=== PATIENT | female | born 1940 | race Caucasian/White ===

== ENCOUNTER 2023-01-22 11:48 | Emergency (ER) | payer OTHER ==
[2023-01-22 11:58] VITALS: BP 167/99; PULSE 67; RESP 18; TEMP 98.4; BMI 20.7
== END 2023-01-22 15:04 | disposition home or self-care (01) ==
LOC: FER 11:48
DX: M25.572 Pain in left ankle and joints of left foot (principal); R22.42 Localized swelling, mass and lump, left lower limb; W01.0XXA Fall on same level from slipping, tripping and stumbling without subsequent striking against object, initial encounter; Y92.009 Unspecified place in unspecified non-institutional (private) residence as the place of occurrence of the external cause; Y93.01 Activity, walking, marching and hiking
CPT/HCPCS: 70450-TC; 71045-TC-FY; 72125-TC; 72170-TC-FY; 73610-TC-LT-FY; 73610-TC-RT-FY; 93005; 99285-25

== ENCOUNTER 2024-11-18 09:28 | Inpatient (IN) | payer OTHER ==
[2024-11-18 10:05] LABS: ABSOLUTE IMMATURE GRANULOCYTES 0.02 x10^3/uL (0.0-0.031); BASOPHILS # 0.04 x10^3/uL (0.01-0.08); EOSINOPHIL % 3.5 % (0.7-5.8); EOSINOPHILS # 0.19 x10^3/uL (0.04-0.36); MCHC 33.3 g/dl (32.2-35.5); MEAN CELL VOLUME 99.7 fl (79.4-94.8); MEAN PLT VOLUME 9.8 fl (9.4-12.3); MONOCYTE # 0.48 x10^3/uL (0.24-0.86); MONOCYTE % 8.9 % (4.7-12.5); RDW 12.6 % (12.5-17.0)
[2024-11-18 10:13] LABS: INR 3.31 (0.83-1.09); PROTHROMBIN TIME (PATIENT) 36.4 SEC (9.7-13.0)
[2024-11-18 10:16] LABS: ACTIVATED PTT 46.1 SECONDS (25.2-36.5)
[2024-11-18 10:21] LABS: GLUCOSE,RANDOM 97.0 mg/dL (74-106)
[2024-11-18 10:22] LABS: TOT PROT 6.4 g/dl (6.4-8.2)
[2024-11-18 10:23] LABS: CO2 25.0 mmol/L (21-32)
[2024-11-18 10:24] LABS: ALK PHOS 68.0 U/L (40-150)
[2024-11-18 10:27] LABS: CREATININE 0.8 mg/dL (0.55-1.3); SGOT/AST 35.0 U/L (5-34); SGPT/ALT 12.0 U/L (0-55)
[2024-11-18] MEDS ORDERED: ACETAMINOPHEN 325 MG TABLET (FP) ONE (11:28)
[2024-11-18] MEDS: ACETAMINOPHEN 325 MG TABLET (FP) PO ONE (12:02)
[2024-11-18] MEDS: LIDOCAINE 5% TOPICAL PATCH TP SCH (14:36)
[2024-11-18 14:54] VITALS: BMI 16.7
[2024-11-18] MEDS: LIDOCAINE PATCH REMOVAL MC SCH (22:17)
[2024-11-18] MEDS: FLECAINIDE ACETATE 50 MG TABLET PO SCH (22:48)
[2024-11-19 06:55] LABS: BASOPHILS # 0.03 x10^3/uL (0.01-0.08); EOSINOPHIL % 0.5 % (0.7-5.8); EOSINOPHILS # 0.04 x10^3/uL (0.04-0.36)
[2024-11-19 07:05] LABS: ABSOLUTE IMMATURE GRANULOCYTES 0.03 x10^3/uL (0.0-0.031); MCHC 34.1 g/dl (32.2-35.5); MEAN CELL VOLUME 100.0 fl (79.4-94.8); MEAN PLT VOLUME 10.5 fl (9.4-12.3); MONOCYTE # 0.56 x10^3/uL (0.24-0.86); MONOCYTE % 7.1 % (4.7-12.5); RDW 12.9 % (12.5-17.0)
[2024-11-19 07:16] LABS: INR 2.63 (0.83-1.09); PROTHROMBIN TIME (PATIENT) 28.9 SEC (9.7-13.0)
[2024-11-19 07:23] LABS: GLUCOSE,RANDOM 106.0 mg/dL (74-106)
[2024-11-19 07:25] LABS: CO2 24.0 mmol/L (21-32)
[2024-11-19 07:29] LABS: CREATININE 0.76 mg/dL (0.55-1.3)
[2024-11-19] MEDS: ACETAMINOPHEN 500 MG TABLET (FP) PO PRN (10:18)
[2024-11-19] MEDS: SERTRALINE HCL 50 MG TABLET (FP) PO SCH (10:18)
[2024-11-19] MEDS: PANTOPRAZOLE 20 MG TABLET PO SCH (10:18)
[2024-11-19] MEDS: WARFARIN NA 5 MG TABLET PO SCH (18:33)
[2024-11-19] MEDS: MEMANTINE HCL 5 MG TABLET (UD) PO ONE (18:33)
[2024-11-19] MEDS: ARTIFICIAL TEARS OPHTHALMIC DROPS OU SCH (21:31)
[2024-11-20 07:20] LABS: ABSOLUTE IMMATURE GRANULOCYTES 0.02 x10^3/uL (0.0-0.031); BASOPHILS # 0.03 x10^3/uL (0.01-0.08); EOSINOPHIL % 3.1 % (0.7-5.8); EOSINOPHILS # 0.18 x10^3/uL (0.04-0.36); MCHC 32.9 g/dl (32.2-35.5); MEAN CELL VOLUME 101.2 fl (79.4-94.8); MEAN PLT VOLUME 9.7 fl (9.4-12.3); MONOCYTE # 0.61 x10^3/uL (0.24-0.86); MONOCYTE % 10.4 % (4.7-12.5); RDW 12.9 % (12.5-17.0)
[2024-11-20 07:27] LABS: INR 2.32 (0.83-1.09); PROTHROMBIN TIME (PATIENT) 25.3 SEC (9.7-13.0)
[2024-11-20 07:56] LABS: TOT PROT 6.2 g/dl (6.4-8.2)
[2024-11-20 07:57] LABS: CO2 25.0 mmol/L (21-32); GLUCOSE,RANDOM 91.0 mg/dL (74-106)
[2024-11-20 07:58] LABS: ALK PHOS 61.0 U/L (40-150)
[2024-11-20 08:01] LABS: CREATININE 0.82 mg/dL (0.55-1.3); SGOT/AST 33.0 U/L (5-34); SGPT/ALT 13.0 U/L (0-55)
[2024-11-20] MEDS: MEMANTINE HCL 5 MG TABLET (UD) PO SCH (10:08)
[2024-11-20 13:47] LABS: EPI CELLS 11 /uL (0-25.1); HYALINE CASTS 1 /uL (0-3.1); URINE APPEARANCE CLEAR; URINE BACTERIA 98 /uL (0-1359); URINE BILIRUBIN NEGATIVE (NEGATIVE); URINE COLOR YELLOW; URINE GLUCOSE (UA) NEGATIVE (NEGATIVE); URINE KETONE NEGATIVE (NEGATIVE); URINE LEUK ESTERASE 1+ (NEGATIVE); URINE NITRITE NEGATIVE (NEGATIVE); URINE PROTEIN 1+ (NEGATIVE); URINE RBC 23 /uL (0-23.9); URINE UROBILINOGEN 1.0 mg/dL (0.2-1.0); URINE WBC 63 /uL (0-25.8)
[2024-11-21 08:08] LABS: ABSOLUTE IMMATURE GRANULOCYTES 0.02 x10^3/uL (0.0-0.031); BASOPHILS # 0.03 x10^3/uL (0.01-0.08); EOSINOPHIL % 1.7 % (0.7-5.8); EOSINOPHILS # 0.10 x10^3/uL (0.04-0.36); MCHC 33.1 g/dl (32.2-35.5); MEAN CELL VOLUME 100.0 fl (79.4-94.8); MEAN PLT VOLUME 10.1 fl (9.4-12.3); MONOCYTE # 0.61 x10^3/uL (0.24-0.86); MONOCYTE % 10.1 % (4.7-12.5); RDW 12.8 % (12.5-17.0)
[2024-11-21 08:15] LABS: GLUCOSE,RANDOM 87.0 mg/dL (74-106); INR 2.72 (0.83-1.09); PROTHROMBIN TIME (PATIENT) 29.6 SEC (9.7-13.0)
[2024-11-21 08:16] LABS: TOT PROT 6.2 g/dl (6.4-8.2)
[2024-11-21 08:17] LABS: CO2 23.0 mmol/L (21-32)
[2024-11-21 08:19] LABS: ALK PHOS 60.0 U/L (40-150)
[2024-11-21 08:21] LABS: CREATININE 0.73 mg/dL (0.55-1.3); SGOT/AST 32.0 U/L (5-34); SGPT/ALT 12.0 U/L (0-55)
[2024-11-21] MEDS: SODIUM CHLORIDE 1,000 ML IV SCH (15:29)
[2024-11-22 08:39] LABS: INR 2.99 (0.83-1.09); PROTHROMBIN TIME (PATIENT) 32.9 SEC (9.7-13.0)
[2024-11-22 08:40] LABS: ABSOLUTE IMMATURE GRANULOCYTES 0.03 x10^3/uL (0.0-0.031); BASOPHILS # 0.02 x10^3/uL (0.01-0.08); EOSINOPHIL % 2.0 % (0.7-5.8); EOSINOPHILS # 0.10 x10^3/uL (0.04-0.36); MCHC 32.6 g/dl (32.2-35.5); MEAN CELL VOLUME 101.9 fl (79.4-94.8); MEAN PLT VOLUME 9.5 fl (9.4-12.3); MONOCYTE # 0.44 x10^3/uL (0.24-0.86); MONOCYTE % 8.7 % (4.7-12.5); RDW 12.8 % (12.5-17.0)
[2024-11-22] MEDS: ACETAMINOPHEN 500 MG TABLET (FP) PO SCH (11:00)
[2024-11-22 11:39] LABS: GLUCOSE,RANDOM 88.0 mg/dL (74-106)
[2024-11-22 11:40] LABS: TOT PROT 5.7 g/dl (6.4-8.2)
[2024-11-22 11:41] LABS: CO2 23.0 mmol/L (21-32)
[2024-11-22 11:42] LABS: ALK PHOS 55.0 U/L (40-150)
[2024-11-22 11:45] LABS: CREATININE 0.7 mg/dL (0.55-1.3); IRON SERUM 27.0 ug/dL (50-175); SGOT/AST 27.0 U/L (5-34); SGPT/ALT 10.0 U/L (0-55)
[2024-11-22] MEDS ORDERED: FERROUS SO4 325 MG TABLET (FP) PO SCH (12:15)
[2024-11-22] MEDS: ASCORBIC ACID 250 MG TABLET (FP) PO SCH (12:43)
[2024-11-22] MEDS: MULTIVITAMINS (DAILY MVI) TABLET (FP) PO SCH (12:44)
[2024-11-22 14:49] LABS: IRON SERUM 23 ug/dL (50-175)
[2024-11-22] MEDS: IRON SUCROSE INJECTION 100 MG in SODIUM CHLORIDE 95 ML IVPB ONE (17:32)
[2024-11-22 19:03] LABS: LDH 188.0 U/L (84-246)
[2024-11-23] MEDS: KETOROLAC TROMETHAMINE 15 MG/ML VIAL IVPUSH ONE (00:10)
[2024-11-23 07:51] VITALS: BP 115/62; PULSE 60; RESP 18; TEMP 98.1
[2024-11-23 09:47] LABS: MCHC 32.0 g/dl (32.2-35.5); MEAN CELL VOLUME 102.2 fl (79.4-94.8); MEAN PLT VOLUME 10.0 fl (9.4-12.3); RDW 13.0 % (12.5-17.0)
[2024-11-23 10:03] LABS: INR 2.49 (0.83-1.09); PROTHROMBIN TIME (PATIENT) 27.1 SEC (9.7-13.0)
[2024-11-23 10:54] LABS: GLUCOSE,RANDOM 81.0 mg/dL (74-106); TOT PROT 5.6 g/dl (6.4-8.2)
[2024-11-23 10:55] LABS: CO2 25.0 mmol/L (21-32)
[2024-11-23 10:57] LABS: ALK PHOS 60.0 U/L (40-150)
[2024-11-23 11:00] LABS: CREATININE 0.79 mg/dL (0.55-1.3); SGOT/AST 29.0 U/L (5-34); SGPT/ALT 9.0 U/L (0-55)
[2024-11-23] MEDS: FERROUS SO4 325 MG TABLET (FP) PO SCH (13:42)
[2024-11-24 18:07] LABS: FREE KAPPA,SERUM 26.9 mg/L (3.3-19.4)
[2024-11-27 19:07] LABS: IG A QN SERUM. 141 mg/dL (64-422)
== END 2024-11-23 16:14 | DRG 552 ==
LOC: JER 09:28 → JERBED 12:36 → J8W 13:58
PROVIDERS: ADMIT Internal Medicine; ATTEND Nurse Practitioner Family
DX: S22.080A Wedge compression fracture of T11-T12 vertebra, initial encounter for closed fracture (principal); S52.021A Displaced fracture of olecranon process without intraarticular extension of right ulna, initial encounter for closed fracture; I10 Essential (primary) hypertension; I25.10 Atherosclerotic heart disease of native coronary artery without angina pectoris; E78.5 Hyperlipidemia, unspecified; I48.91 Unspecified atrial fibrillation; R29.6 Repeated falls; W19.XXXA Unspecified fall, initial encounter; Y93.9 Activity, unspecified; Y92.89 Other specified places as the place of occurrence of the external cause; Y99.9 Unspecified external cause status; F03.90 Unspecified dementia, unspecified severity, without behavioral disturbance, psychotic disturbance, mood disturbance, and anxiety; D53.9 Nutritional anemia, unspecified
CPT/HCPCS: 36415; 70450-TC; 71045-TC-FY; 72125-TC; 72131-TC; 72170-TC-FY; 73070-TC-RT-FY; 80048; 80053; 81003; 82525; 82607; 82728; 82747; 82784; 83010; 83540; 83550; 83615; 83735; 83883; 84100; 84155; 84165; 84443; 84630; 85014; 85025; 85610; 85730; 86850; 86880; 86900; 86901; 87086; 87637-QW; 93005; 93010; 97116-GP; 97161-GP; 99285-25; J1756